=== PATIENT | female | born 1940 | race Caucasian/White ===

== ENCOUNTER → 2017-04-23 | Outpatient (CLI) | payer OTHER, BC ==
[2017-04-23 13:17] LABS: BASO % 0.6 %; BASO ABS # 0.03 K/uL (0-0.2); COMPLETE YES; EOS % 1.6 %; HEMATOCRIT 45.4 % (37-47); LYMPH % 21.6 %; LYMPH ABS # 1.05 K/uL (1.2-3.4); MEAN CORPUSCULAR HEMOGLOBIN 28.2 pg (25-34); MEAN CORPUSCULAR HGB CONC 31.7 g/dl (32-36); MONO % 7.8 %; NEUT % 68.4 %; PLATELET COUNT 198 K/uL (130-400); WHITE BLOOD COUNT 4.87 K/uL (4.8-10.8)
[2017-04-23 13:37] LABS: ALT/SGPT 34 U/L (12-78); BLOOD UREA NITROGEN 18 mg/dl (7-18); BUN/CREATININE RATIO 16.7 (10-20); CARBON DIOXIDE 28 mmol/L (21-32); CHLORIDE 107 mmol/L (98-107); CHOLESTEROL 195 mg/dl (0-200); GLUCOSE 129 mg/dl (70-99); POTASSIUM 4.4 mmol/L (3.5-5.1); SODIUM 141 mmol/L (136-145); TRIGLYCERIDES 214 mg/dl (0-150); VERY LOW DENSITY LIPOPROT CALC 43 mg/dl
[2017-04-23 13:42] LABS: ESTIMATED AVERAGE GLUCOSE 148 mg/dl; HA1C FLAG Normal (Normal)
[2017-04-23 13:48] LABS: ALB/GLOB RATIO 1.2 (0.9-2); ALKALINE PHOSPHATASE 62 U/L (45-117); AST/SGOT 20 U/L (15-37); CHOLESTEROL/HDL RATIO 6.1; HDL CHOLESTEROL 32 mg/dl; LDL CHOLESTEROL CALCULATED 120 mg/dl
[2017-04-23 18:21] LABS: CALCIUM 8.9 mg/dl (8.5-10.1)
== END | disposition home or self-care (01) ==
LOC: C.LABMFLN 08:36
PROVIDERS: ATTEND Family Medicine
DX: K21.9 Gastro-esophageal reflux disease without esophagitis (principal); E78.5 Hyperlipidemia, unspecified; R73.01 Impaired fasting glucose